=== PATIENT | male | born 1960 | race Caucasian/White ===

== ENCOUNTER 2016-11-05 07:40 | Day surgery (SDC) | payer OTHER ==
[~2016-11-05] VITALS: Ht 170.2 cm; Wt 111.5 kg
[~2016-11-05 07:40] MED LIST: FURO-109 PO; METH10TA2 PO
[2016-11-05 08:29] VITALS: Ht 170.2 cm; Wt 111.5 kg
[2016-11-05] MEDS ORDERED: [UNRECOGNIZED DRUG - CODE] PO (08:38)
[2016-11-05] MEDS ORDERED: TRAM-40 PO (08:38)
[2016-11-05 08:47] VITALS: BP 117/65; PULSE 75; RESP 18
[2016-11-05] MEDS ORDERED: LIDOCAINE 2% (SDV) 5 ML INJ ONE (08:58)
[2016-11-05] MEDS ORDERED: PROPOFOL 20 ML ONE (08:58)
[2016-11-05] MEDS ORDERED: MIDAZOLAM 1 MG/ML 2 ML INJ ONE (08:58)
--- NOTE | 2016-11-05 09:33 | GILP ---
DATE OF PROCEDURE: 11/05/2016 PROCEDURE: Esophagogastroduodenoscopy. PREOPERATIVE DIAGNOSIS: A patient presenting with history of chronic abdominal discomfort, dyspepsi a and heartburn, rule out peptic ulcer disease, gastritis. POSTOPERATIVE DIAGNOSES: 1. Diffuse mild gastritis. Biopsy was done from the antrum and the lesser curvature to rule out He licobacter pylori infection. 2. Esophagus showed evidence of no varices. 3. Duodenum appeared normal. DESCRIPTION OF PROCEDURE: After the informed written consent was obtained, the patient was asked to lie on the left lateral side. Intravenous anesthesia was given by anesthesiologist, Dr. Razo. Whe n the patient became somnolent, the Olympus video upper endoscope was introduced into the oropharynx , then into the esophagus. Esophagus showed no esophageal varices. Scope at this time was advanced into the stomach. Stomach showed evidence of diffuse erythema and friability. Biopsy was done fro m the antrum of the stomach to rule out H. pylori infection. Minimal whitish liquid was noted, whic h most of it was aspirated. Duodenum was examined, which appeared normal with no additional abnorma lities. No ulcers noted. Endoscope at this time was withdrawn and on the way out, no additional ab normalities detected and the procedure was terminated. PLAN: Recommend wait for the H. pylori a results. Meanwhile, recommend omeprazole 40 mg a day for 8 weeks. Dictated By: EVGENY EMERY/IVET Conf#: [id number] DID#: [id number] CC: EVGENY PATEL MD; ROSA MARIA URIBE MD;*[facility]*
[2016-11-05 09:41] VITALS: BP 114/58; PULSE 73; RESP 18
== END 2016-11-05 11:39 | disposition home or self-care (01) ==
LOC: GIL 07:40
PROVIDERS: ATTEND Internal Medicine Gastroenterology
DX: K29.50 Unspecified chronic gastritis without bleeding (principal); E66.01 Morbid (severe) obesity due to excess calories; Z68.38 Body mass index [BMI] 38.0-38.9, adult
CPT/HCPCS: 43239; 88305; 88312; J2250; Z7610

== ENCOUNTER 2017-12-29 13:15 | Day surgery (SDC) | END 2017-12-29 16:10 | disposition home or self-care (01) ==

== ENCOUNTER 2018-05-13 14:25 | Emergency (ER) | END 2018-05-13 18:12 | disposition home or self-care (01) ==

== ENCOUNTER 2019-02-12 15:26 | Emergency (ER) | payer OTHER ==
[~2019-02-12] VITALS: Ht 167.6 cm; Wt 115.8 kg
[~2019-02-12 15:26] MED LIST changes: -FURO-109 PO; +FURO40TA4 PO
[2019-02-12 15:46] VITALS: Ht 167.6 cm; Wt 115.8 kg
--- NOTE | 2019-02-12 17:49 | ERD ---
ER Documentation Chief Complaint Chief Complaint abdominal pain w/nausea, x 5 days HPI The patient is a 58-year-old female, presenting to the ER because of abdominal cramp for the last 5 days after eating chicken that he thought it might not be well cooked. He denies fever, chills, neck pain, chest pain, dyspnea, abdominal pain, vomiting, dizzy, diarrhea. He smokes marijuana, drinks Past Medical history: Hepatitis C, cirrhosis, peptic ulcer disease Surgical history: He had a colonoscopy recently last year that was unremarkable except for colon polyps ROS All systems reviewed and are negative except as per history of present illness. Medications Home Meds Active Scripts Pantoprazole* (Protonix*) 40 Mg Tablet.dr, 40 MG PO DAILY, #20 TAB Prov:RENETTA KU MD 02/12/19 Reported Medications Methadone Hcl* (Methadone*) 10 Mg Tab, 15 MG PO DAILY, TAB 05/13/18 Furosemide* (Furosemide*) 40 Mg Tablet, 40 MG PO DAILY, TAB 05/13/18 Allergies Allergies: Coded Allergies: No Known Allergy (Unverified , 05/13/18) PMhx/Soc History of Surgery: Yes (RIGHT THUMB SURGERY) Anesthesia Reaction: No Hx Neurological Disorder: No Hx Respiratory Disorders: No Hx Cardiac Disorders: No Hx Psychiatric Problems: No Hx Miscellaneous Medical Probl: Yes (RIGHT EYE REDNESS, HEP C, CIRRHOSIS) Hx Alcohol Use: Yes (DAILY) Hx Substance Use: Yes (MARIJUANA) Hx Tobacco Use: No Physical Exam Vitals Vital Signs Date Temp Pulse Resp B/P (MAP) Pulse Ox O2 O2 Flow FiO2 Time Delivery Rate 02/12/19 98.1 84 18 131/68 96 15:46 (89) Physical Exam Const: No acute distress. Head: Atraumatic. Eyes: Normal Conjunctiva. ENT: Normal External Ears, Nose and Mouth. Neck: Full range of motion. No meningismus. Resp: Clear to auscultation bilaterally. Cardio: Regular rate and rhythm. Abd: Soft, non distended, normal bowel sounds, non tender. Skin: No petechiae or rashes. Back: No midline or flank tenderness. Ext: No cyanosis, or edema. Neur: Awake and alert. No focal deficit Psych: Normal Mood and Affect. Result Diagram: 02/12/19185002/12/191850 Results 24 hrs Laboratory Tests Test 6/17/19 18:51 White Blood Count 6.0 10^3/ul Red Blood Count 3.49 10^6/ul Hemoglobin 12.2 g/dl Hematocrit 35.7 % Mean Corpuscular Volume 102.3 fl Mean Corpuscular Hemoglobin 35.0 pg Mean Corpuscular Hemoglobin Concent 34.2 g/dl Red Cell Distribution Width 14.6 % Platelet Count 83 10^3/UL Mean Platelet Volume 11.7 fl Immature Granulocytes % 0.500 % Neutrophils % % Segmented Neutrophils % (Manual) 57 % Band Neutrophils % (Manual) 2 % Lymphocytes % % Lymphocytes % (Manual) 22 % Reactive Lymphocytes % (Manual) 1 % Monocytes % % Monocytes % (Manual) 15 % Eosinophils % % Eosinophils % (Manual) 2 % Basophils % % Basophils % (Manual) 1 % Nucleated Red Blood Cells % 0.0 /100WBC Immature Granulocytes # 0.030 10^3/ul Neutrophils # 10^3/ul Neutrophils # (Manual) 3.4 10^3/ul Band Neutrophils # 0.1 10^3/ul Lymphocytes (Manual) 1.3 10^3/ul Lymphocytes # 10^3/ul Reactive Lymphocytes # 0.0 10^3/ul Monocytes # 10^3/ul Monocytes # (Manual) 0.9 10^3/ul Eosinophils # 10^3/ul Basophils # 10^3/ul Basophils # (Manual) 0.0 10^3/ul Nucleated Red Blood Cells # 10^3/ul Platelet Estimate DECREASED Giant Platelets 2 % Polychromasia 1+ Anisocytosis 2+ Macrocytosis 2+ Urine Color RYLAN Urine Clarity CLEAR Urine pH 6.0 Urine Specific [place] 1.016 Urine Ketones NEGATIVE mg/dL Urine Nitrite NEGATIVE mg/dL Urine Bilirubin NEGATIVE mg/dL Urine Urobilinogen 2+ mg/dL Urine Leukocyte Esterase NEGATIVE Angie/ul Urine Hemoglobin NEGATIVE mg/dL Urine Glucose NEGATIVE mg/dL Urine Total Protein NEGATIVE mg/dl Sodium Level 137 mmol/L Potassium Level 3.6 mmol/L Chloride Level 106 mmol/L Carbon Dioxide Level 25 mmol/L Anion Gap 6 Blood Urea Nitrogen 9 mg/dl Creatinine 0.72 mg/dl Est Glomerular Filtrat Rate mL/min > 60 mL/min Glucose Level 84 mg/dl Calcium Level 7.6 mg/dl Total Bilirubin 1.3 mg/dl Direct Bilirubin 0.00 mg/dl Indirect Bilirubin 1.3 mg/dl Aspartate Amino Transf (AST/SGOT) 183 IU/L Alanine Aminotransferase (ALT/SGPT) 75 IU/L Alkaline Phosphatase 164 IU/L Total Protein 6.5 g/dl Albumin 2.4 g/dl Globulin 4.10 g/dl Albumin/Globulin Ratio 0.58 Lipase 102 U/L Ethyl Alcohol Level 117.0 mg/dl Procedures/MDM MEDICAL MAKING DECISION: The patient is a 58-year-old male, presenting with acute abdominal cramps, most likely alcohol related. He has been stable emergency department and did not require any intervention The differential diagnoses considered include but are not limited to cholelithiasis, cholecystitis, choledocholithiasis, cholangitis, pancreatitis, hepatitis, gastritis, peptic ulcer disease, gastric ulcer, appendicitis, c ystitis, diverticulitis, partial small bowel obstruction. Departure Diagnosis: Primary Impression: Abdominal cramps Additional Impressions: Alcohol abuse Anemia Thrombocytopenia Condition: Good Comments He was discharged with Protonix I discussed the findings with the patient. I advised the patient to follow-up with the primary physician in about 2-3 days, sooner if needed and return if any concern. Disclaimer: Inadvertent spelling and grammatical errors are likely due to EHR/dictation software use and do not reflect on the overall quality of patient care. Also, please note that the electronic time recorded on this note does not necessarily reflect the actual time of the patient encounter. RENETTA KU MD Feb 12, 2019 17:49
[2019-02-12] MEDS ORDERED: PANT40TA3 PO (20:36)
[2019-02-12 20:57] VITALS: BP 110/56; PULSE 78; RESP 16
== END 2019-02-12 20:58 | disposition home or self-care (01) ==
LOC: E/R 15:26
DX: R10.9 Unspecified abdominal pain (principal); F10.10 Alcohol abuse, uncomplicated; D64.9 Anemia, unspecified; D69.6 Thrombocytopenia, unspecified
CPT/HCPCS: 36415; 80053; 80307; 81003; 83690; 85025; Z7502; 99283

== ENCOUNTER 2019-06-30 12:03 | Emergency (ER) | payer OTHER ==
[~2019-06-30] VITALS: Ht 170.2 cm; Wt 122.1 kg
[~2019-06-30 12:03] MED LIST changes: +CEPH-443 PO; +NAPR-985 PO; +PANT40TA3 PO; +SULF1TAB31 PO
[2019-06-30 12:11] VITALS: Ht 170.2 cm; Wt 122.1 kg
[2019-06-30] MEDS ORDERED: LIDOCAINE 1% (MPF) 5 ML VIAL INFIL ONE (13:00)
[2019-06-30 14:38] VITALS: BP 121/75; PULSE 65; RESP 16
== END 2019-06-30 14:39 | disposition home or self-care (01) ==
LOC: FTE 12:03
DX: L02.212 Cutaneous abscess of back [any part, except buttock and flank] (principal)
CPT/HCPCS: 10060; Z7502; Z7610